=== PATIENT | female | born 1950 | race Caucasian/White ===

== ENCOUNTER 2019-03-27 16:47 | Emergency (ER) | payer MEDICARE ==
[2019-03-27 17:24] LABS: ALBUMIN 4.6 g/dL (3.5-5.0); ALKALINE PHOSPHATASE 79 U/L (38-126); ANION GAP 21.8 MEQ/L (5-15); BLOOD UREA NITROGEN 17 mg/dL (7-17); CHLORIDE 108 mmol/L (98-107); Calcium 10.5 mg/dL (8.4-10.2); Carbon Dioxide 20 mmol/L (22-30); Creatinine 1 0.86 mg/dL (0.52-1.04); Glucose 109 mg/dL (74-106); Potassium 4.1 mmol/L (3.5-5.1); SGOT/AST 25 U/L (14-36); SGPT/ALT 19 U/L (0-35); SODIUM 146 mmol/L (137-145); Total Protein 8.1 g/dL (6.3-8.2)
[2019-03-27 17:24] LABS: BASOPHIL % 0.7 % (0.0-0.4); Basophil (Absolute #) 0.07 (0-0.4); Eosinophil % 2.4 % (0.00-5.0); Eosinophil (Absolute #) 0.23 (0-0.5); Granulocyte Absolute (ANC) 5.14 (1.4-6.9); Granulocytes % 54.9 % (36.0-66.0); Hemoglobin 12.4 gm/dl (12.0-16.0); Lymphocyte (Absolute #) 3.27 (1.0-4.6); Lymphocytes % 34.8 % (24.0-44.0); Mean Cell Volume 100.8 fl (78-100); Mean Corpuscular Hgb Concent. 31.8 g/dl (32-36); Mean Platelet Volume 8.7 fl (6-9.5); Monocyte (Absolute #) 0.68 (0.0-1.3); Monocytes % 7.2 % (0.0-12.0); Platelet Count 431 K/mm3 (150-450); Red Blood Count 3.87 M/mm3 (4.1-5.4); Red Cell Distribution Width 12.5 % (11.5-14.0); White Blood Count 9.4 K/mm3 (4.0-10.5)
[2019-03-27 18:30] LABS: Appearance CLOUDY (CLEAR); Bacteria FEW /HPF (NEGATIVE); Bilirubin NEGATIVE (NEGATIVE); Blood SMALL Ery/ul (0-5); Glucose NEGATIVE (NEGATIVE); Ketones NEGATIVE (NEGATIVE); Leukocyte Esterase TRACE (NEGATIVE); Nitrite NEGATIVE (NEGATIVE); Protein,Urine Dip NEGATIVE (Negative); Specific Gravity 1.003 (1.005-1.025); Urobilinogen NEGATIVE mg/dL (0-1)
[2019-03-27 18:40] LABS: Amphetamine,Urine NEGATIVE (NEGATIVE); Barbiturate,Urine NEGATIVE (NEGATIVE); Benzodiazepine,Urine NEGATIVE (NEGATIVE); Cocaine,Urine NEGATIVE (NEGATIVE); Methadone,Urine NEGATIVE (NEGATIVE); Opiate,Urine NEGATIVE (NEGATIVE); PCP,Urine NEGATIVE (NEGATIVE); THC,Urine NEGATIVE (NEGATIVE)
--- NOTE | 2019-03-27 18:52 | ERPHSYRPT ---
- History of Present Illness Time Seen by Provider: 03/27/19 17:40 Source: patient Exam Limitations: no limitations Patient Subjective Stated Complaint: pt presents with [facility] for medical clearance. 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 law enforcement completed a field sobriety test as well as a PBT which pt failed both. pt PBT was found to be 0.226 at the scene. pt reports she was drinking at a nearby winery for her birthday. pt has no complaints at this time. Triage Nursing Assessment: pt is aox3, pt tearful upon exam, pt with repetitive speech upon exam, pt apologetic, pt afebrile, resps easy and non labored, radial pulses strong and equal, cap refill < 3 seconds, pt skin pink warm dry. pt with a healing wound to the left lower leg. skin is intact. Physician History: Patient brought in for medical clearance. Patient has no other acute complaints. Timing/Duration: today Severity: moderate Modifying Factors: Improves With: nothing Associated Symptoms: No nausea, No vomiting, No abdominal pain, No shortness of breath, No heartburn, No diaphoresis, No cough, No chills, No chest pain, No fever, No headaches, No loss of appetite, No rash, No syncope, No seizure, No weakness Allergies/Adverse Reactions: No Known Drug Allergies Allergy (Unverified 03/27/19 17:08) Hx Tetanus, Diphtheria Vaccination/Date Given: Yes Hx Influenza Vaccination/Date Given: Yes Hx Pneumococcal Vaccination/Date Given: Yes Immunizations Up to Date: Yes - Review of Systems Constitutional: No Fever, No Chills Eyes: No Eye Pain, No Vision Changes Ears, Nose, & Throat: No Ear Pain, No Nose Discharge, No Mouth Pain, No Painful Swallowing Respiratory: No Cough, No Dyspnea Cardiac: No Chest Pain, No Edema, No Syncope Abdominal/Gastrointestinal: No Abdominal Pain, No Nausea, No Vomiting, No Diarrhea, No Hematemesis, No Hematochezia, No Melena Genitourinary Symptoms: No Dysuria, No Hematuria, No Flank Pain Musculoskeletal: No Back Pain, No Neck Pain Skin: No Rash Neurological: No Dizziness, No Focal Weakness, No Sensory Changes Psychological: No Symptoms Endocrine: No Symptoms Hematologic/Lymphatic: No Easy Bleeding, No Easy Bruising All Other Systems: Reviewed and Negative - Past Medical History Pertinent Past Medical History: Yes Cardiac History: Hypertension History: Other Other Medical History: kidney stones - Past Surgical History Past Surgical History: Yes Gastrointestinal: Appendectomy Female Surgical History: Hysterectomy - Social History Smoking Status: Never smoker Exposure to second hand smoke: No Drug Use: none Patient Lives Alone: No - Female History Hx Now: No - Nursing Vital Signs Nursing Vital Signs: Initial Vital Signs Temperature 97.9 F 03/27/19 16:51 Pulse Rate 110 H 03/27/19 16:51 Respiratory Rate 24 03/27/19 16:51 Blood Pressure 194/100 03/27/19 16:51 O2 Sat by Pulse Oximetry 98 03/27/19 16:51 Pain Scale Pain Intensity 0 - Physical Exam General Appearance: no apparent distress, alert Eye Exam: PERRL/EOMI, eyes nml inspection Ears, Nose, Throat Exam: normal ENT inspection, TMs normal, pharynx normal, moist mucous membranes Neck Exam: normal inspection, non-tender, supple, full range of motion Respiratory Exam: normal breath sounds, lungs clear, airway intact, No respiratory distress, No accessory muscle use, No crackles/rales, No rhonchi, No wheezing, No stridor Cardiovascular Exam: regular rate/rhythm, normal heart sounds, normal peripheral pulses, capillary refill <2 sec Gastrointestinal/Abdomen Exam: soft, normal bowel sounds, No tenderness, No distention, No mass, No guarding, No rebound Back Exam: normal inspection, normal range of motion, No CVA tenderness, No vertebral tenderness Extremity Exam: normal inspection, normal range of motion, pelvis stable Neurologic Exam: alert, oriented x 3, cooperative, hydrogeologist II-XII nml as tested, normal mood/affect, nml cerebellar function, nml station & gait, sensation nml, No motor deficits Skin Exam: normal color, warm, dry, No rash Lymphatic Exam: No adenopathy SpO2 Interpretation: normal SpO2: 97 O2 Delivery: Room Air - Course Nursing assessment & vital signs reviewed: Yes Ordered Tests: Active Orders 24 hr Category Date Time Status CBC W DIFF Stat Lab 03/27/19 17:09 Completed CMP Stat Lab 03/27/19 16:44 Completed CULTURE,URINE Stat Lab 03/27/19 18:00 Received UA W/RFX UR CULTURE Stat Lab 03/27/19 18:00 Completed Urine Triage Profile Stat Lab 03/27/19 18:00 Completed Lab/Rad Data: Laboratory Result Diagrams 03/27/19 17:09 03/27/19 16:44 Laboratory Results 03/27/19 03/27/19 03/27/19 Range/Units 18:00 18:00 17:09 WBC 9.4 (4.0-10.5) K/mm3 RBC 3.87 L (4.1-5.4) M/mm3 Hgb 12.4 (12.0-16.0) gm/dl Hct 39.0 (35-47) % MCV 100.8 H (78-100) fl MCH 32.0 (26-32) pg MCHC 31.8 L (32-36) g/dl RDW 12.5 (11.5-14.0) % Plt Count 431 (150-450) K/mm3 MPV 8.7 (6-9.5) fl Gran % 54.9 (36.0-66.0) % Eos # (Auto) 0.23 (0-0.5) Absolute Lymphs (auto) 3.27 (1.0-4.6) Absolute Monos (auto) 0.68 (0.0-1.3) Lymphocytes % 34.8 (24.0-44.0) % Monocytes % 7.2 (0.0-12.0) % Eosinophils % 2.4 (0.00-5.0) % Basophils % 0.7 (0.0-0.4) % Absolute Granulocytes 5.14 (1.4-6.9) Basophils # 0.07 (0-0.4) Sodium (137-145) mmol/L Potassium (3.5-5.1) mmol/L Chloride (98-107) mmol/L Carbon Dioxide (22-30) mmol/L Anion Gap (5-15) MEQ/L BUN (7-17) mg/dL Creatinine (0.52-1.04) mg/dL Estimated GFR ML/MIN Glucose (74-106) mg/dL Calcium (8.4-10.2) mg/dL Total Bilirubin (0.2-1.3) mg/dL AST (14-36) U/L ALT (0-35) U/L Alkaline Phosphatase (38-126) U/L Serum Total Protein (6.3-8.2) g/dL Albumin (3.5-5.0) g/dL Urine Color YELLOW (YELLOW) Urine Appearance CLOUDY (CLEAR) Urine pH 6.0 (5-6) Ur Specific [place] 1.003 (1.005-1.025) Urine Protein NEGATIVE (Negative) Urine Ketones NEGATIVE (NEGATIVE) Urine Blood SMALL (0-5) Tom/ul Urine Nitrite NEGATIVE (NEGATIVE) Urine Bilirubin NEGATIVE (NEGATIVE) Urine Urobilinogen NEGATIVE (0-1) mg/dL Ur Leukocyte Esterase TRACE (NEGATIVE) Urine WBC (Auto) 6-10 (0-5) /HPF Urine RBC (Auto) NONE (0-2) /HPF U Epithel Cells (Auto) NONE (FEW) /HPF Urine Bacteria (Auto) FEW (NEGATIVE) /HPF Urine Culture Reflexed YES (NO) Urine Glucose NEGATIVE (NEGATIVE) mg/dL Urine Opiates Level NEGATIVE (NEGATIVE) Ur Methadone NEGATIVE (NEGATIVE) Urine Barbiturates NEGATIVE (NEGATIVE) Ur Phencyclidine (PCP) NEGATIVE (NEGATIVE) Urine Amphetamine NEGATIVE (NEGATIVE) U Benzodiazepine Level NEGATIVE (NEGATIVE) Urine Cocaine NEGATIVE (NEGATIVE) Urine Marijuana (THC) NEGATIVE (NEGATIVE) 03/27/19 Range/Units 16:44 WBC (4.0-10.5) K/mm3 RBC (4.1-5.4) M/mm3 Hgb (12.0-16.0) gm/dl Hct (35-47) % MCV (78-100) fl MCH (26-32) pg MCHC (32-36) g/dl RDW (11.5-14.0) % Plt Count (150-450) K/mm3 MPV (6-9.5) fl Gran % (36.0-66.0) % Eos # (Auto) (0-0.5) Absolute Lymphs (auto) (1.0-4.6) Absolute Monos (auto) (0.0-1.3) Lymphocytes % (24.0-44.0) % Monocytes % (0.0-12.0) % Eosinophils % (0.00-5.0) % Basophils % (0.0-0.4) % Absolute Granulocytes (1.4-6.9) Basophils # (0-0.4) Sodium 146 H (137-145) mmol/L Potassium 4.1 (3.5-5.1) mmol/L Chloride 108 H (98-107) mmol/L Carbon Dioxide 20 L (22-30) mmol/L Anion Gap 21.8 H (5-15) MEQ/L BUN 17 (7-17) mg/dL Creatinine 0.86 (0.52-1.04) mg/dL Estimated GFR > 60.0 ML/MIN Glucose 109 H (74-106) mg/dL Calcium 10.5 H (8.4-10.2) mg/dL Total Bilirubin 0.30 (0.2-1.3) mg/dL AST 25 (14-36) U/L ALT 19 (0-35) U/L Alkaline Phosphatase 79 (38-126) U/L Serum Total Protein 8.1 (6.3-8.2) g/dL Albumin 4.6 (3.5-5.0) g/dL Urine Color (YELLOW) Urine Appearance (CLEAR) Urine pH (5-6) Ur Specific [place] (1.005-1.025) Urine Protein (Negative) Urine Ketones (NEGATIVE) Urine Blood (0-5) Tom/ul Urine Nitrite (NEGATIVE) Urine Bilirubin (NEGATIVE) Urine Urobilinogen (0-1) mg/dL Ur Leukocyte Esterase (NEGATIVE) Urine WBC (Auto) (0-5) /HPF Urine RBC (Auto) (0-2) /HPF U Epithel Cells (Auto) (FEW) /HPF Urine Bacteria (Auto) (NEGATIVE) /HPF Urine Culture Reflexed (NO) Urine Glucose (NEGATIVE) mg/dL Urine Opiates Level (NEGATIVE) Ur Methadone (NEGATIVE) Urine Barbiturates (NEGATIVE) Ur Phencyclidine (PCP) (NEGATIVE) Urine Amphetamine (NEGATIVE) U Benzodiazepine Level (NEGATIVE) Urine Cocaine (NEGATIVE) Urine Marijuana (THC) (NEGATIVE) ETOH: 207 mg/dl - Progress Progress: unchanged Progress Note: 03/27/19 18:52 Patient is doing well and is medically cleared for transfer to police custody. Counseled pt/family regarding: lab results, diagnosis, need for follow-up - Departure Departure Disposition: [facility] Clinical Impression: Medical clearance for incarceration Acute alcohol intoxication Qualifiers: Complication of substance-induced condition: uncomplicated Qualified Code(s): F10.920 - Alcohol use, unspecified with intoxication, uncomplicated Condition: Good Critical Care Time: No Referrals: DOCTOR,NO FAMILY [Primary Care Provider] - Follow Up with PCP/3 days Instructions: Alcohol Abuse and Alcoholism (DC) Additional Instructions: Return to the emergency department if any concerning symptoms or signs occur that were not present during today's emergency department visit. patient has an alcohol level on the blood work of 207mg/dl.
[2019-03-27 19:05] VITALS: BP 151/79; PULSE 94; O2SAT 94
== END 2019-03-27 19:04 | disposition home or self-care (01) ==
LOC: ED 16:47
DX: F10.920 Alcohol use, unspecified with intoxication, uncomplicated (principal); Z02.89 Encounter for other administrative examinations
CPT/HCPCS: 36415; 80053; 80307; 81001; 85025; 87077; 87086; 87186; 99283